=== PATIENT | female | born 1970 | race African-American/Black ===

== ENCOUNTER 2024-01-26 16:57 | Emergency (ER) | payer OTHER ==
[~2024-01-26] VITALS: Ht 167.6 cm; Wt 104.5 kg
[2024-01-26] MEDS ORDERED: VALS80TA2 PO (17:02)
[2024-01-26] MEDS ORDERED: ATOR20TA PO (17:02)
[2024-01-26 17:08] VITALS: BP 172/91; PULSE 78; RESP 18; TEMP 98.2
[2024-01-26 17:14] LABS: COVID AG,FIA SOURCE NASAL SWAB
[2024-01-26 17:33] LABS: SARS-COV2 (COVID) ANTIGEN,FIA Negative (Negative)
[2024-01-26 17:35] LABS: INFLUENZA TYPE A NEGATIVE FOR TYPE A (NEGATIVE); INFLUENZA TYPE B NEGATIVE FOR TYPE B (NEGATIVE)
[2024-01-26] MEDS ORDERED: AZIT250T9 PO (19:39)
== END 2024-01-26 19:53 | disposition home or self-care (01) ==
LOC: EMS 16:59
DX: J06.9 Acute upper respiratory infection, unspecified (principal); E78.00 Pure hypercholesterolemia, unspecified; I10 Essential (primary) hypertension; Z91.011 Allergy to milk products; Z91.013 Allergy to seafood; Z91.012 Allergy to eggs; Z20.822 Contact with and (suspected) exposure to COVID-19
CPT/HCPCS: 87804; 99283

== ENCOUNTER 2025-03-13 10:30 | Emergency (ER) | payer OTHER ==
[~2025-03-13] VITALS: Ht 167.6 cm; Wt 98.6 kg
[~2025-03-13 10:30] MED LIST: ATOR20TA PO; VALS80TA2 PO
[2025-03-13 10:46] VITALS: BP 129/91; PULSE 82; RESP 16; TEMP 97.9; O2SAT 98
[2025-03-13 11:00] LABS: COVID AG,FIA SOURCE NASAL SWAB
[2025-03-13 12:01] LABS: SARS-COV2 (COVID) ANTIGEN,FIA Positive (Negative)
[2025-03-13] MEDS ORDERED: AZIT-164 PO (12:22)
[2025-03-13] MEDS ORDERED: CHLO25TA3 PO (12:23)
[2025-03-13] MEDS ORDERED: TIRZ2.5P3 SQ (12:23)
[2025-03-13] MEDS ORDERED: DOCU100C33 PO (12:23)
[2025-03-13] MEDS ORDERED: CHOL25TA4 PO (12:23)
[2025-03-13] MEDS: AZITHROMYCIN 500 MG TABLET PO ONE (12:33)
== END 2025-03-13 12:45 | disposition home or self-care (01) ==
LOC: EMS 10:35
DX: U07.1 COVID-19 (principal); J18.9 Pneumonia, unspecified organism; E78.00 Pure hypercholesterolemia, unspecified; I10 Essential (primary) hypertension; Z79.899 Other long term (current) drug therapy; Z91.012 Allergy to eggs; Z91.011 Allergy to milk products; Z91.013 Allergy to seafood
CPT/HCPCS: 99283; 87426; J0456